=== PATIENT | female | born 1945 | race Caucasian/White ===

== ENCOUNTER 2017-09-03 09:26 | Day surgery (SDC) | payer OTHER, BC ==
[2017-08-17 17:28] VITALS: BMI 28.0
--- NOTE | 2017-09-02 20:43 | HP ---
Admitting History and Physical - Admission Chief Complaint: Left knee osteoarthritis x years History of Present Illness: 71 year old female presents in regard to her left knee. Longstanding history of left knee osteoarthritis. Patient admits to pain, limited ROM, difficulty ambulating and difficulty completing ADLs. Patient has failed conservative treatment measures including PO medications, activity modification, injections and an exercise program. At this point, patient wishes to proceed with surgical intervention - left partial knee replacement, MAKOplasty. History Source: Patient - Past Medical History Cardiovascular: Yes: CHF, HTN, Hyperlipdemia Pulmonary: Yes: Asthma ...: No ENT: Yes: Other (Seasonal allergies) - Past Surgical History Additional Past Surgical History: See written history & physical. - Smoking History Smoking history: Former smoker Have you smoked in the past 12 months: No If you are a former smoker, when did you quit?: 2012 - Alcohol/Substance Use Hx Alcohol Use: No Home Medications - Allergies Allergies/Adverse Reactions: Allergies Allergy/AdvReac Type Severity Reaction Status Date / Time amoxicillin trihydrate Allergy Severe LIVER Verified 04/27/15 09:12 [From Augmentin] FUNCTION TESTS GET VERY ELEVATED celecoxib [From Celebrex] Allergy Severe Rash Verified 04/27/15 09:12 gabapentin Allergy Severe LEG Verified 08/17/17 17:13 SWELLING potassium clavulanate Allergy Severe LIVER Verified 04/27/15 09:12 [From Augmentin] FUNCTION TESTS GET VERY ELEVATED pregabalin [From Lyrica] Allergy Severe leg Verified 08/17/17 17:13 swelling - Home Medications Home Medications: Ambulatory Orders Albuterol Sulfate Inhaler - [Ventolin HFA Inhaler -] 1 - 2 inh PO ASDIR PRN 12/29 Aspirin [ASA -] 162 mg PO DAILY 04/25/15 Atenolol [Tenormin] 50 mg PO DAILY 04/25/15 Atorvastatin Ca [Lipitor] 40 mg PO Q48H 04/25/15 Carisoprodol [Soma] 350 mg PO BID PRN 04/25/15 Furosemide [Lasix -] 40 mg PO DAILY 04/25/15 Hydrochlorothiazide [Hctz -] 12.5 mg PO DAILY 04/25/15 Montelukast Na [Singulair -] 10 mg PO DAILY 04/25/15 Potassium Chloride 20 meq PO DAILY 04/25/15 Ranitidine HCl [Zantac] 150 mg PO DAILY 04/25/15 Valsartan [Diovan] 20 mg PO HS 04/25/15 Zolpidem Tartrate [Ambien Cr] 12.5 mg PO HS PRN 04/25/15 Meloxicam [Mobic] 1 tab PO DAILY 05/15/17 Oxymorphone HCl [Opana] 10 mg PO BID 05/15/17 Pramipexole Di-HCl [Mirapex ER] 1 tab PO DAILY 05/15/17 Alendronate Na [Fosamax] 70 mg PO Q7D 08/17/17 Atorvastatin Ca [Lipitor] 20 mg PO Q48H 08/17/17 Ca/D3/Mag Ox/Zinc/Pelt Grader/Martin/Bor [Calcium 600+D3 Plus Caplet] 1 each PO DAILY 07/01 Duloxetine HCl [Cymbalta] 30 mg PO DAILY 08/17/17 Multivitamin [Multiple Vitamins] 1 each PO DAILY 08/17/17 Oxymorphone HCl [Oxymorphone HCl ER] 30 mg PO BID PRN 08/17/17 Review of Systems - Review of Systems Musculoskeletal: reports: Decreased ROM (left knee), Joint Pain (left knee) Physical Examination Constitutional: Yes: Well Nourished, No Distress Eyes: Yes: Conjunctiva Clear HENT: Yes: Atraumatic, Normocephalic Neck: Yes: Supple Cardiovascular: Yes: Regular Rate and Rhythm Respiratory: Yes: Regular Gastrointestinal: Yes: Soft ...Rectal Exam: Yes: Deferred Musculoskeletal: Yes: Joint Stiffness (left knee), Joint Swelling (left knee) Assessment/Plan 71 year old female presents in regard to her left knee. Longstanding history of left knee osteoarthritis. Patient admits to pain, limited ROM, difficulty ambulating and difficulty completing ADLs. Patient has failed conservative treatment measures including PO medications, activity modification, injections and an exercise program. At this point, patient wishes to proceed with surgical intervention. Pros, cons, risks, benefits and alternatives of a - left partial knee replacement, MAKOplasty was discussed with the patient at length. Patient confirms their understanding and consents to proceed with a left partial knee replacement, MAKOplasty.
[~2017-09-03 09:26] MED LIST: CEFAZOLIN IVPB ONE; ROPIVICAINE 0.2%/MORPH PF/KETOROLAC - 51ML DISP.SYRINGE IA ONE; TRANEXAMIC ACID 1000 MG/10 ML VIAL IVPUSH ONE; [UNRECOGNIZED DRUG - OTHER] IVPB ONE; oxyCODONE HCL 10 MG SUSTAINED ACTING TABLET PO ONE
[2017-09-03] MEDS ORDERED: oxyCODONE HCL 10 MG SUSTAINED ACTING TABLET ONE (10:51)
[2017-09-03] MEDS ORDERED: PANTOPRAZOLE 40 MG TABLET (FP) ONE (10:51)
[2017-09-03] MEDS: PANTOPRAZOLE 40 MG TABLET (FP) PO ONE (11:00)
[2017-09-03] MEDS ORDERED: PROPOFOL 20 ML ONE ×4 (11:20→14:15)
[2017-09-03] MEDS ORDERED: LIDOCAINE HCL 2% 100 MG/5 ML DISP.SYRIN ONE (11:22)
[2017-09-03] MEDS ORDERED: MIDAZOLAM HCL 2 MG/2 ML SINGLE DOSE VIAL ONE ×2 (11:51→11:55)
[2017-09-03] MEDS ORDERED: BUPIVACAINE HCL/PF (5 MG/ML) 30 ML VIAL IJ ONE (11:51)
[2017-09-03] MEDS ORDERED: DEXAMETHASONE SOD PHOSPHATE/PF 10 MG/ML SDV ONE (11:51)
[2017-09-03] MEDS ORDERED: ceFAZolin SODIUM 1 GM VIAL ONE ×2 (11:55→11:57)
[2017-09-03] MEDS ORDERED: VANCOMYCIN 1,000 MG VIAL (RESTRICTED TO ID ONLY) ONE (11:55)
[2017-09-03] MEDS ORDERED: TRANEXAMIC ACID 1000 MG/10 ML VIAL ONE ×3 (11:55→14:16)
[2017-09-03] MEDS ORDERED: ONDANSETRON 4 MG/2 ML VIAL ONE (11:57)
[2017-09-03] MEDS ORDERED: DEXAMETHASONE SOD PHOSPHATE 4 MG/1 ML VIAL ONE (11:57)
[2017-09-03] MEDS ORDERED: ROPIVICAINE 0.2%/MORPH PF/KETOROLAC - 51ML DISP.SYRINGE IA ONE (11:57)
[2017-09-03] MEDS ORDERED: ceFAZolin SODIUM 1 GM VIAL IVPB ONE (14:16)
[2017-09-03] MEDS ORDERED: KETOROLAC TROMETHAMINE 30 MG/1 ML VIAL ONE (14:38)
[2017-09-03] MEDS ORDERED: ONDANSETRON 4 MG/2 ML VIAL IVPUSH PRN ×2 (15:28→15:45)
[2017-09-03] MEDS ORDERED: MAG HYDROX/AL HYDROX/SIMETH 30 ML UNIT-DOSE CUP PO PRN (15:28)
[2017-09-03] MEDS ORDERED: LACTATED RINGERS SOLUTION 1,000 ML IV SCH (15:30)
[2017-09-03] MEDS ORDERED: oxyCODONE HCL 5 MG TABLET PO PRN (15:46)
[2017-09-03] MEDS ORDERED: traMADol HCL 50 MG TABLET ONE (16:12)
[2017-09-03] MEDS ORDERED: ACETAMINOPHEN INJECTION 100 ML IVPB ONE (16:12)
[2017-09-03] MEDS ORDERED: KETOROLAC TROMETHAMINE 30 MG/1 ML VIAL IVPUSH SCH (16:15)
[2017-09-03] MEDS ORDERED: ACETAMINOPHEN 1000 MG/100 ML VIAL (NON FORMULARY) IVPB ONE ×2 (16:15)
[2017-09-03] MEDS: traMADol HCL 50 MG TABLET PO SCH ×2 (16:58→23:00)
[2017-09-03] MEDS ORDERED: traMADol HCL 50 MG TABLET PO SCH (18:00)
[2017-09-03] MEDS ORDERED: ALBUTEROL SO4 18 GM HFA INHALER IH PRN (18:46)
[2017-09-03] MEDS ORDERED: ATORVASTATIN CA 20 MG TABLET (FP) PO SCH (19:00)
[2017-09-03] MEDS: CEFAZOLIN 1 GM/D5W 1 GM/50 ML BAG IVPB SCH (20:05)
[2017-09-03] MEDS: DULoxetine HCL 30 MG CAPSULE.DR (FP) PO SCH (22:00)
[2017-09-03] MEDS ORDERED: VALSARTAN 40 MG TABLET (FP) PO SCH (22:00)
[2017-09-03] MEDS ORDERED: ATORVASTATIN CA 40 MG TABLET (FP) PO SCH (22:00)
[2017-09-03] MEDS: oxyCODONE HCL 10 MG SUSTAINED ACTING TABLET PO SCH (22:05)
[2017-09-03] MEDS: ASCORBIC ACID 500 MG TABLET (FP) PO SCH (22:05)
[2017-09-03] MEDS: SENNOSIDES/DOCUSATE COMBO (SENNA PLUS) TABLET (UD) PO SCH (22:05)
[2017-09-03] MEDS: ACETAMINOPHEN 325 MG TABLET (FP) PO SCH (22:06)
[2017-09-03] MEDS: KETOROLAC TROMETHAMINE 30 MG/1 ML VIAL IVPUSH SCH (22:06)
[2017-09-03] MEDS ORDERED: DEXAMETHASONE SOD PHOSPHATE 10 MG/1 ML VIAL IVPB ONE (23:00)
[2017-09-04] MEDS: CEFAZOLIN 1 GM/D5W 1 GM/50 ML BAG IVPB SCH (01:59)
[2017-09-04] MEDS: traMADol HCL 50 MG TABLET PO SCH ×2 (04:21→11:51)
[2017-09-04] MEDS: ACETAMINOPHEN 325 MG TABLET (FP) PO SCH ×2 (04:21→12:39)
[2017-09-04] MEDS: KETOROLAC TROMETHAMINE 30 MG/1 ML VIAL IVPUSH SCH ×2 (04:21→09:49)
[2017-09-04] MEDS ORDERED: LACTATED RINGERS SOLUTION 1,000 ML IV SCH (06:00)
[2017-09-04] MEDS ORDERED: ASPIRIN 325 MG TABLET PO SCH (08:00)
[2017-09-04 08:16] LABS: HEMATOCRIT 38.7 % (32.4-45.2); HEMOGLOBIN 13.1 GM/dl (10.7-15.3); MCH 31.7 pg (25.7-33.7); MCHC 33.9 g/dl (32.0-36.0); MEAN CELL VOLUME 93.6 fl (80-96); MEAN PLT VOLUME 7.5 fl (7.5-11.1); PLATELET COUNT 225 K/MM3 (134-434); RBC 4.13 M/mm3 (3.60-5.2); RDW 12.4 % (11.6-15.6); WHITE BLOOD COUNT 13.4 K/mm3 (4.0-10.8)
[2017-09-04] MEDS: oxyCODONE HCL 5 MG TABLET PO PRN ×3 (08:36→14:00)
[2017-09-04 09:14] LABS: ANION GAP 9 (8-16); BLOOD UREA NITROGEN 20 mg/dl (7-18); CALCIUM 8.4 mg/dl (8.4-10.2); CHLORIDE 104 mmol/L (98-107); CO2 22 mmol/L (22-28); CREATININE 0.8 mg/dl (0.6-1.3); GLUCOSE,RANDOM 204 mg/dl (74-106); POTASSIUM 4.3 mmol/L (3.5-5.1); SODIUM 135 mmol/L (136-145)
--- NOTE | 2017-09-04 09:37 | PN ---
Progress Note (short form) - Note Progress Note: Anesthesia Post-Op Note Pt s/p left medial TKR with Dr. Wilson on 09/03/17. Pt received PNB + Spinal + MAC. Reports pain controlled. OOB to chair and ambulating with PT. Tolerating PO diet. Vital Signs Temperature 98.4 F 09/04/17 06:00 Pulse Rate 64 09/04/17 06:00 Respiratory Rate 18 09/04/17 06:00 Blood Pressure 142/59 09/04/17 06:00 O2 Sat by Pulse Oximetry (%) 100 09/04/17 06:00 Continue ISS. Encourage ambulation. Bowel regimen.
[2017-09-04] MEDS: SENNOSIDES/DOCUSATE COMBO (SENNA PLUS) TABLET (UD) PO SCH (09:42)
[2017-09-04] MEDS: DULoxetine HCL 30 MG CAPSULE.DR (FP) PO SCH (09:45)
[2017-09-04] MEDS: oxyCODONE HCL 10 MG SUSTAINED ACTING TABLET PO SCH (09:46)
[2017-09-04] MEDS: ASCORBIC ACID 500 MG TABLET (FP) PO SCH (09:46)
[2017-09-04] MEDS: PANTOPRAZOLE 40 MG TABLET (FP) PO ONE (09:46)
[2017-09-04 09:50] VITALS: PULSE 72; TEMP 98
[2017-09-04] MEDS ORDERED: PANTOPRAZOLE 40 MG TABLET (FP) PO SCH (10:00)
[2017-09-04] MEDS ORDERED: HYDROCHLOROTHIAZIDE 12.5 MG CAPSULE (FP) PO SCH (10:00)
[2017-09-04] MEDS ORDERED: PRAMIPEXOLE DI HCL PO SCH (10:00)
[2017-09-04] MEDS ORDERED: MULTIVITAMINS (DAILY MVI) TABLET (FP) PO SCH (10:00)
[2017-09-04] MEDS ORDERED: ATENOLOL 50 MG TABLET (FP) PO SCH (10:00)
[2017-09-04] MEDS ORDERED: FUROSEMIDE 40 MG TABLET (FP) PO SCH (10:00)
[2017-09-04] MEDS ORDERED: PT OWN MED DRAWER 7, Y5N ONE (11:42)
--- NOTE | 2017-09-04 13:11 | DS ---
Physical Examination Vital Signs: Vital Signs Temperature 98 F 09/04/17 09:49 Pulse Rate 72 09/04/17 09:49 Respiratory Rate 18 09/04/17 09:49 Blood Pressure 129/80 09/04/17 09:49 O2 Sat by Pulse Oximetry (%) 100 09/04/17 09:00 Labs: CBC, BMP 09/04/17 08:00 09/04/17 08:47 Discharge Summary Reason For Visit: LEFT KNEE OSTEOARTHRITIS Current Active Problems Osteoarthritis of left knee (Acute) Procedures: Principal: Left knee medial MARITZA [facility] Hospital Course: Admitted for elective surgery. Procedure performed without complications. Pt received postoperative antibiotic prophylaxis and DVT ppx. Ambulated with physical therapy. Stable for discharge home with outpatient followup. Condition: Stable - Instructions Diet, Activity, Other Instructions: Dr. Wilson - Knee Replacement Instructions Keep the Aquacel dressing on until removed by Dr. Wilson in 10-14 days - it is antibacterial and waterproof and you can shower with it on. Call the office for a follow-up appointment with Dr. Wilson on ThursdaySeptember 18. [phone] Dr. Wilson will be out of town next week but his partners, Drs. Ca and Mikal will be in the office covering if there are any issues. Take one Aspirin 325mg daily for 6 weeks to prevent blood clots in your legs. Take Cephalexin (antibiotic) 3x/day for 10 days to help prevent skin infection. Resume taking meloxicam to reduce swelling and inflammation. Take a multivitamin, stool softener, and extra Vitamin C supplement daily. For pain: *Mild pain (1-3/10): Take 1 Tramadol tablet every 4 hours as needed. Moderate pain (4-6/10): Take 1 Tramadol tablet and 1 Percocet tablet every 4 hours as needed. Severe pain (7-10/10): Take 1 Tramadol tablet and 2 Percocet tablets every 4 hours as needed. Activity: You can put as much weight on the operative leg as you want. Right after you get home, there will be a physical therapist coming to your house to help you walk around and bend/straighten your knee. After your follow-up appointment, you will be sent for more intensive outpatient physical therapy which will include machines and equipment that the home therapist cannot bring to your house. Always use a walker or cane for balance and to prevent falls. Expect to see swelling/bruising from the operative site all the way down to your toes. Wear the compression stocking on the operative side during the day to minimize how much swelling there is in your foot/ankle. Don't wear the stocking at night. You don't have to wear a stocking on the other side. Disposition: VNS/HOME HEALTH CARE - Home Medications Comprehensive Discharge Medication List: Ambulatory Orders Albuterol Sulfate Inhaler - [Ventolin HFA Inhaler -] 1 - 2 inh PO ASDIR PRN 12/29 Atenolol [Tenormin] 50 mg PO DAILY 04/25/15 Atorvastatin Ca [Lipitor] 40 mg PO Q48H 04/25/15 Carisoprodol [Soma] 350 mg PO BID PRN 04/25/15 Furosemide [Lasix -] 40 mg PO DAILY 04/25/15 Hydrochlorothiazide [Hctz -] 12.5 mg PO DAILY 04/25/15 Montelukast Na [Singulair -] 10 mg PO DAILY 04/25/15 Potassium Chloride 20 meq PO DAILY 04/25/15 Ranitidine HCl [Zantac] 150 mg PO DAILY 04/25/15 Valsartan [Diovan] 20 mg PO HS 04/25/15 Zolpidem Tartrate [Ambien Cr] 12.5 mg PO HS PRN 04/25/15 Meloxicam [Mobic] 1 tab PO DAILY 05/15/17 Oxymorphone HCl [Opana] 10 mg PO BID 05/15/17 Pramipexole Di-HCl [Mirapex ER] 1 tab PO DAILY 05/15/17 Alendronate Na [Fosamax (Weekly)] 70 mg PO Q7D 08/17/17 Atorvastatin Ca [Lipitor] 20 mg PO Q48H 08/17/17 Ca/D3/Mag Ox/Zinc/Soapstoner/Martin/Bor [Calcium 600-D3 Plus Caplet] 1 each PO DAILY 07/01 Duloxetine HCl [Cymbalta] 30 mg PO BID 08/17/17 Multivitamin [Multiple Vitamins] 1 each PO DAILY 08/17/17 Oxymorphone HCl [Oxymorphone HCl ER] 30 mg PO BID PRN 08/17/17 Ascorbic Acid [Vitamin C -] 500 mg PO BID tablet 09/04/17 Aspirin [ASA -] 325 mg PO DAILY@0800 tablet 09/04/17 Cephalexin Monohydrate [Keflex -] 500 mg PO TID #30 capsule 09/04/17 Multivitamins [Multivit ([facility])] 1 tab PO DAILY tab 09/04/17 Oxycodone HCl/Acetaminophen [Percocet 5-325 mg Tablet] 1 - 2 tab PO Q4H PRN #60 tablet MDD 10 09/04/17 Sennosides/Docusate Sodium [Pericolace -] 2 tablet PO BID tablet 09/04/17 traMADol HCL [Ultram -] 50 mg PO Q4H PRN #42 tablet MDD 6 09/04/17
[2017-09-04 13:18] VITALS: BP 110/74
--- NOTE | 2017-09-04 14:30 | SPEC ---
DATE OF OPERATION: 09/03/2017 PREOPERATIVE DIAGNOSIS: Left knee osteoarthritis. POSTOPERATIVE DIAGNOSIS: Left knee osteoarthritis. PROCEDURE: Left knee medial MAKOplasty partial knee replacement. ATTENDING: Aureliano Cleaning MD BUILDING CODE INSPECTOR: CLARITA Manning ANESTHESIA: Spinal plus sedation. ESTIMATED BLOOD LOSS: 100 mL. COMPLICATIONS: None. DISPOSITION: The patient was transferred to the PACU in stable condition. IMPLANTS USED: Rodri size 4 femoral and tibial components, 10-mm polyethylene component. INDICATIONS: This is a 71-year-old female who presented to the office complaining of severe left knee pain. She was seen and examined by Dr. Cleaning and diagnosed with severe left knee osteoarthritis. The degeneration and pain was localized exclusively to the medial compartment. She denied having any lateral or patellofemoral pain. The patient was initially treated nonoperatively with injections, medications, and physical therapy but continued to have severe pain and ambulatory dysfunction. She was, therefore, indicated for a left knee medial MAKOplasty partial knee replacement. Again, all of her symptoms were located in the medial compartment, and therefore, we elected to proceed with a medial unicompartmental arthropathy. The risks, benefits, and alternatives to the surgery were explained to the patient in great detail, and she elected to proceed with the procedure. DESCRIPTION OF PROCEDURE: On the day of surgery, the patient was taken to the operating room and placed on the OR table. Spinal anesthesia was administered by the anesthesiologist. The patient was then positioned supine on the table and all bony prominences were padded. A nonsterile tourniquet was placed on the proximal thigh of the operative leg. The knee was then prepped and draped in the usual sterile fashion and intravenous antibiotics were given for infection prophylaxis. A surgical time out was then performed with the team and the patient's identify, procedure, side, availability of implants and the administration of antibiotics was confirmed. With the knee flexed, an 8 cm incision was made just slightly medial to the midline and carried down through the subcutaneous fat to the underlying retinaculum. Electrocautery was used to achieve hemostasis. A limited medial parapatellar arthrotomy was performed. This was followed by a subperiosteal dissection of the tissue off the proximal medial tibia. A portion of fat pad was removed from under the patellar tendon to improve visualization and a small portion of fat was excised off the distal supracondylar femur. The knee was then flexed further and the anterior horn of the medial meniscus was released. Grade 4 changes were noted diffusely throughout the medial compartment. The lateral compartment appeared to be in good condition. Femoral and tibial checkpoints were then placed in the appropriate location using a mallet. Two parallel bicortical self-drilling pins were placed in the proximal tibia after making stab incisions and bluntly dissecting down to bone. These were positioned approximately 10 cm distal to the tibial tubercle. Two pins were then placed in the proximal femur using the same technique. These were located approximately 10 cm proximal to the superior pole of the patella. The PROFICIO navigation arrays were then attached to both the femoral and tibial pins and the lower extremity was then registered to the robotic navigation device using various joint movements, as well as inputting approximately 50 checkpoints. The knee was then taken through a full range of motion with a corrective valgus force applied. Alignment in varus/valgus was measured at 0, 30, 60, 90 and 120 degrees of flexion to determine soft tissue balance in all of these positions. The navigation device showed appropriate tracking of the virtual components on the screen, as well as a graphic representation of the soft tissue balance. The components were repositioned virtually using the software until optimal soft tissue balance was achieved. Once this was accomplished, the final plan was saved and sent to the robot. Retractors were then placed around the distal femur. The robot was brought into the sterile field and registered with the navigation device. The robotic arm with a damaris was then used to remove the appropriate amount of bone from the femur and tibia as per the saved software plan. The knee was then irrigated. Trial components were placed and the knee was taken through a full range of motion to assess soft tissue balance and alignment. The tracking and range of motion were found to be excellent and the soft tissue balance was optimal and according to plan. All trial components were then removed and an Esmarch bandage was used to exsanguinate the leg. The tourniquet was inflated in preparation for cementing. All bony surfaces were cleaned with pulsatile lavage and dried. Bone cement was then prepared on the back table and final components were cemented in place in the usual fashion. After final implants were placed, a 3-minute dilute Betadine lavage was performed. Following this, the wound was irrigated with normal saline, and wound closure was begun. Extruded cement was removed. Once the cement had hardened, the knee was taken through a full range of motion to assess stability, balance and patellar tracking. These were found to be optimal. The trial polyethylene was exchanged for a final implant. Medial and inferior osteophytes were debrided off the patella (patelloplasty). The navigation arrays and Kimani pins were removed from the femur and tibia. All wounds were then thoroughly irrigated with normal saline. A periarticular injection was used to locally infiltrate the capsular tissues surrounding the implant and prosthesis. A 1 Vicryl and 0 V-Francy 180 barbed sutures were used to close the arthrotomy. 2-0 Vicryl sutures were used in the subcutaneous tissues. The skin was closed using both 3-0 V-Francy 90 suture in a running subcuticular fashion and Dermabond skin adhesive. 4-0 undyed Vicryl and Dermabond skin adhesive was used to close the stab incisions made for the navigation pins. Once this was completed, sterile Aquacel dressings were applied to each incision site. A compressive dressing was applied. The tourniquet was then deflated and the patient was awakened and went to the PACU in stable condition. AURELIANO CLEANING M.D. [id number]
[2017-09-04] MEDS ORDERED: MONTELUKAST NA 10 MG TABLET PO SCH (22:00)
== END 2017-09-04 14:15 | disposition home health service (06) ==
LOC: FASU 09:26 → FM/S 17:36 → FASU 09-04 14:15
PROVIDERS: ATTEND Student in an Organized Health Care Education/Training Program
PROC: 8E0YXBZ Computer Assisted Procedure of Lower Extremity (ICD-10-PCS; 2017-09-03)
PROC: 8E0Y0CZ Robotic Assisted Procedure of Lower Extremity, Open Approach (ICD-10-PCS; 2017-09-03)
PROC: 0SRD0L9 Replacement of Left Knee Joint with Medial Unicondylar Synthetic Substitute, Cemented, Open Approach (ICD-10-PCS; principal; 2017-09-03 11:30)
DX: M17.12 Unilateral primary osteoarthritis, left knee (principal)
CPT/HCPCS: 20985; 27446; C1776; S2900; 36415; 73560-TC-LT-FY; 80048; 85027; 94760; 97116-GP; 97162-GP; J0131; J1100

== ENCOUNTER 2018-05-14 06:09 | Day surgery (SDC) | payer OTHER, BC ==
[2018-05-10 14:54] VITALS: BMI 29.2
[2018-05-14] MEDS ORDERED: PROPOFOL 20 ML ONE (07:27)
[2018-05-14] MEDS ORDERED: MIDAZOLAM HCL 2 MG/2 ML SINGLE DOSE VIAL ONE (07:27)
[2018-05-14] MEDS ORDERED: BUPIVACAINE HCL/PF 0.5% (5MG/ML) 10 ML VIAL ONE (07:37)
[2018-05-14] MEDS ORDERED: LIDOCAINE HCL 1% PRESERVATIVE FREE - 30ML VIAL ONE (07:37)
[2018-05-14] MEDS ORDERED: DEXAMETHASONE SOD PHOSPHATE 4 MG/1 ML VIAL ONE (07:52)
[2018-05-14] MEDS ORDERED: ONDANSETRON 4 MG/2 ML VIAL ONE (07:52)
[2018-05-14] MEDS ORDERED: KETOROLAC TROMETHAMINE 30 MG/1 ML VIAL ONE (07:52)
[2018-05-14] MEDS ORDERED: ceFAZolin SODIUM 1 GM VIAL ONE (07:56)
[2018-05-14] MEDS ORDERED: SUCCINYLCHOLINE CHLORIDE 200 MG/10 ML VIAL ONE (07:59)
[2018-05-14] MEDS ORDERED: BUPIVACAINE HCL/PF 0.5% (5MG/ML) 10 ML VIAL IJ ONE (08:06)
[2018-05-14] MEDS ORDERED: LIDOCAINE 1% P/F 10 MG/ML VIAL INF ONE (08:06)
[2018-05-14 09:51] VITALS: BP 118/61; PULSE 65; TEMP 98
--- NOTE | 2018-05-14 13:33 | OP ---
DATE OF OPERATION: 05/14/2018 LOCATION: [facility]. SURGEON: Zoraida Gibbons MD BOTTLE FEEDER: CLARITA Headley PREOPERATIVE DIAGNOSIS: Left foot plantar fasciitis. POSTOPERATIVE DIAGNOSIS: Left foot plantar fasciitis. PROCEDURE: Release of plantar fascia using percutaneous dissection Tenex procedure. DESCRIPTION OF PROCEDURE: The anatomy was identified and the diseased tissue was visualized and confirmed at the plantar fascia insertion. The area was prepped and draped with an antimicrobial solution, anesthetized using a 20-gauge needle, injection of 8 mL of 1% lidocaine. An 11-blade was used to puncture the skin 3 cm along the distal medial portion near the site of the pathologic tissue. Sterile sleeve was placed over the ultrasound transducer. Dissection of the plantar fascia: The surgical instrument was introduced into the puncture site, advanced to the diseased fascia. Once the tip of the instrument was confirmed to be in the pathologic tissue, the foot pedal was depressed and the fascia was incised along its length, cutting and removing the diseased fascial tissue. Following this procedure, a single suture was placed. Sterile dressing was placed. She was transferred to recovery without complication. FINDINGS: Thickened plantar fascia scar tissue. ZORAIDA GIBBONS M.D. [id number]
== END 2018-05-14 10:00 | disposition home or self-care (01) ==
LOC: FASU 06:09
PROVIDERS: ATTEND Orthopaedic Surgery
PROC: 0KNW0ZZ Release Left Foot Muscle, Open Approach (ICD-10-PCS; principal; 2018-05-14 08:07)
DX: M72.2 Plantar fascial fibromatosis (principal)

== ENCOUNTER 2018-09-03 07:14 | Day surgery (SDC) | payer OTHER, BC ==
[2018-09-03 07:57] VITALS: BMI 30.9
[2018-09-03] MEDS ORDERED: EPINEPHrine 1:1,000 1 MG/1 ML - 30ML VIAL (INJECTION) ONE (08:26)
[2018-09-03] MEDS ORDERED: ROPIVACAINE HCL 0.5% 30ML VIAL ONE (08:48)
[2018-09-03] MEDS ORDERED: MIDAZOLAM HCL 2 MG/2 ML SINGLE DOSE VIAL ONE (08:48)
[2018-09-03] MEDS ORDERED: LIDOCAINE HCL 1% PRESERVATIVE FREE - 30ML VIAL ONE (09:53)
[2018-09-03] MEDS ORDERED: methylPREDNISolone ACET (DEPO) 40 MG/1 ML VIAL ONE (09:53)
[2018-09-03] MEDS ORDERED: ePHEDrine SULFATE 50 MG/1 ML AMPULE ONE (10:08)
[2018-09-03] MEDS ORDERED: PROPOFOL 20 ML ONE ×2 (10:35→10:56)
[2018-09-03] MEDS ORDERED: LACTATED RINGERS SOLUTION 1,000 ML IV SCH (14:15)
[2018-09-03] MEDS ORDERED: oxyCODONE HCL 5 MG TABLET PO PRN ×2 (14:15)
[2018-09-03] MEDS ORDERED: ONDANSETRON 4 MG/2 ML VIAL IVPUSH PRN (14:15)
[2018-09-03 14:43] VITALS: BP 112/55; PULSE 66; TEMP 98.4
--- NOTE | 2018-09-04 11:49 | OP ---
DATE OF OPERATION: 09/03/2018 LOCATION: [facility]. SURGEON: Zoraida Gibbons MD PRESS SET UP: CLARITA Headley PREOPERATIVE DIAGNOSES: 1. Right shoulder rotator cuff tear. 2. Right shoulder adhesive capsulitis. 3. Right shoulder impingement syndrome. 4. Right shoulder acromioclavicular degenerative joint disease. 5. Right shoulder superior labral tear, anterior-posterior synovitis. 6. Right shoulder biceps tendon long head tear. POSTOPERATIVE DIAGNOSES: 1. Right shoulder rotator cuff tear. 2. Right shoulder adhesive capsulitis. 3. Right shoulder impingement syndrome. 4. Right shoulder acromioclavicular degenerative joint disease. 5. Right shoulder superior labral tear, anterior-posterior synovitis. 6. Right shoulder biceps tendon long head tear. PROCEDURE: 1. Right shoulder arthroscopy with arthroscopic rotator cuff repair (CPT code 14337). 2. Right shoulder arthroscopy with lysis and resection of adhesions (CPT code 09210). 3. Right shoulder arthroscopy with subacromial decompression (CPT code 36709). 4. Right shoulder arthroscopy with resection of the clavicle acromioclavicular joint (CPT code 10418) 5. Right shoulder arthroscopy with debridement (CPT code 08152). 6. Right shoulder arthroscopy with resection of biceps tendon (CPT code 91053). FINDINGS: 1. A 90% tearing with fraying of the long head biceps tendon. 2. Type 4 superior labral tear, anterior and posterior. 3. Posterior anterior labral fraying. 4. Central grade 2 cartilage injury, glenoid, humerus. 5. Full-thickness supraspinatus and infraspinatus rotator cuff tear with a V-shaped separation. 6. Inferior spurs, distal clavicle, with acromioclavicular joint disease. 7. Type 2 to 3 acromion with anterior spurring. 8. Thickened scar tissue and adhesions, subacromial space, most pronounced anterior and laterally. REPAIR TYPE: [id number] closure starting posteriorly inferiorly was performed with the supraspinatus, infraspinatus, anterior border secured to bleeding bone bed using 2 separate anchors and mattress sutures. Three [id number] anchors were placed and mattress sutures were placed into the anterior portion and posterior portion and secured to bleeding bone bed. Biceps tendon was completely released and debrided down to the superior labrum removing the torn portion of the biceps as well as the SLAP tear. PROCEDURE: Informed consent was obtained. The patient was taken to the operating room, where the upper extremity was prepped and draped in a sterile fashion. The shoulder was manipulated for a full range of motion. A posterior incision portal was made and directed to the glenohumeral joint. Under direct visualization, an anterior incision and portal was made. Extensive synovitis as well as chondral injuries throughout the glenohumeral joint were debrided and removed. Any identified labral injuries, including the superior labral tear, anterior and posterior, and anterior labrum torn portions, were removed as well. The rotator cuff was visualized and noted to have a full-thickness tear. The edges were debrided. The posterior incision portal was redirected to the subacromial space where a lateral incision portal was made. Excessive and thickened scar tissue noted throughout the subacromial space, including bursal and scar tissue, were removed. The type 2 acromion was converted into a flattened type 1 using a bur for subacromial decompression. The distal inferior spur at the distal clavicle was also debrided with the use of an accessory portal in the acromioclavicular joint. The edges of the rotator cuff were identified. Sutures were placed into the rotator cuff and secured using anchors through the greater tuberosity. Prior to securing, a bleeding bed was made using a small bur, creating a bleeding surface of the rotator cuff insertion. The shoulder was then drained, a single suture was placed in all portals, a sterile dressing was placed and the patient was transferred to the recovery room without complication. The PA listed above was present and assisted at surgery. Their presence was absolutely medically necessary for the completion of the procedure. They helped hold the arthroscope, pass instruments (and implants when indicated) and the procedure could not have been completed without their assistance. ZORAIDA GIBBONS M.D. [id number]
--- NOTE | 2018-09-08 13:02 | PATH ---
Surgical Pathology Report Patient Name: BOYD RODRIGUEZ [facility] [place]. Rec. #: [id number] /Age/Gender: 1945 (Age: 72) / F Account: [id number] Location: [facility] Taken: 09/03/2018 Received: 09/03/2018 Reported: 09/08/2018 Physicians: Ruben Ca M.D. Specimen(s) Received SHAVINGS RIGHT SHOULDER Clinical History Right rotator cuff tear Final Diagnosis SHOULDER, RIGHT, ARTHROSCOPIC SHAVINGS: FIBROSYNOVIAL TISSUE, CARTILAGE, BONE AND SKELETAL MUSCLE. Electronically Signed Mary Kay Love M.D. Gross Description Received in formalin, labeled "shavings right shoulder," is a 4.5 x 3.0 x 0.3 cm. aggregate of wellington-yellow soft tissue fragments. A wine sales representative portion is submitted in one cassette. /09/06/2018 saudi09/06/2018
== END 2018-09-03 14:05 | disposition home or self-care (01) ==
LOC: FASU 07:14
PROVIDERS: ATTEND Orthopaedic Surgery
PROC: 0RNJ4ZZ Release Right Shoulder Joint, Percutaneous Endoscopic Approach (ICD-10-PCS; 2018-09-03)
PROC: 0MM14ZZ Reattachment of Right Shoulder Bursa and Ligament, Percutaneous Endoscopic Approach (ICD-10-PCS; 2018-09-03)
PROC: 0PB94ZZ Excision of Right Clavicle, Percutaneous Endoscopic Approach (ICD-10-PCS; 2018-09-03)
PROC: 0RBJ4ZZ Excision of Right Shoulder Joint, Percutaneous Endoscopic Approach (ICD-10-PCS; 2018-09-03)
PROC: 0LQ14ZZ Repair Right Shoulder Tendon, Percutaneous Endoscopic Approach (ICD-10-PCS; 2018-09-03)
PROC: 0LS14ZZ Reposition Right Shoulder Tendon, Percutaneous Endoscopic Approach (ICD-10-PCS; 2018-09-03)
PROC: 0LQ14ZZ Repair Right Shoulder Tendon, Percutaneous Endoscopic Approach (ICD-10-PCS; principal; 2018-09-03 10:17)
DX: M75.121 Complete rotator cuff tear or rupture of right shoulder, not specified as traumatic (principal); M75.41 Impingement syndrome of right shoulder; M19.011 Primary osteoarthritis, right shoulder; S46.119A Strain of muscle, fascia and tendon of long head of biceps, unspecified arm, initial encounter; S43.431A Superior glenoid labrum lesion of right shoulder, initial encounter; X58.XXXA Exposure to other specified factors, initial encounter; Y93.9 Activity, unspecified; Y92.9 Unspecified place or not applicable
CPT/HCPCS: 82962; 88304-TC; 94760

== ENCOUNTER 2020-07-25 19:47 | Inpatient (IN) | payer OTHER, BC ==
[2020-07-25] MEDS ORDERED: SODIUM CHLORIDE 1,000 ML IV STA ×2 (21:12→21:43)
[2020-07-25] MEDS ORDERED: ACETAMINOPHEN 1000 MG/100 ML BAG IVPB ONE (21:12)
[2020-07-25 21:15] LABS: BASO % 0.5 % (0-2.0); HEMATOCRIT 32.7 % (32.4-45.2); HEMOGLOBIN 11.1 GM/dL (10.7-15.3); MCHC 33.9 g/dl (32.0-36.0); MEAN CELL VOLUME 91.3 fl (80-96); MEAN PLT VOLUME 7.5 fl (7.5-11.1); MONO % 3.1 % (3.8-10.2); NEUT % 93.4 % (42.8-82.8); PLATELET COUNT 156 K/MM3 (134-434); RBC 3.58 M/mm3 (3.60-5.2); RDW 15.4 % (11.6-15.6); WHITE BLOOD COUNT 18.2 K/mm3 (4.0-10.0)
[2020-07-25] MEDS ORDERED: ACETAMINOPHEN INJECTION 100 ML IVPB ONE (21:17)
[2020-07-25 21:28] LABS: EPI CELLS 15 /uL (0-25.1); HYALINE CASTS 2 /uL (0-3.1); URINE APPEARANCE TURBID; URINE BACTERIA >9,000 /uL (0-1359); URINE BILIRUBIN NEGATIVE (NEGATIVE); URINE COLOR YELLOW; URINE GLUCOSE (UA) NEGATIVE (NEGATIVE); URINE KETONE NEGATIVE (NEGATIVE); URINE LEUK ESTERASE 3+ (NEGATIVE); URINE NITRITE NEGATIVE (NEGATIVE); URINE PROTEIN 2+ (NEGATIVE); URINE RBC 71 /uL (0-23.9); URINE WBC 1575 /uL (0-25.8)
[2020-07-25 21:38] LABS: CALCIUM 7.5 mg/dL (8.5-10.1)
[2020-07-25 21:39] LABS: ALBUMIN 2.2 g/dl (3.4-5.0)
[2020-07-25 21:42] LABS: CREATININE 2.2 mg/dL (0.55-1.3)
[2020-07-25 21:44] LABS: BILIRUBIN,TOTAL 0.6 mg/dL (0.2-1); TOT PROT 5.6 g/dl (6.4-8.2)
[2020-07-25 22:12] LABS: ANISOCYTOSIS 1+; MACROCYTOSIS 0; PLATELET ESTIMATE NORMAL
[2020-07-26] MEDS ORDERED: ALBUTEROL SO4 HFA INHALER IH PRN ×2 (01:25→12:00)
[2020-07-26] MEDS ORDERED: SODIUM CHLORIDE 1,000 ML IV SCH (01:30)
[2020-07-26] MEDS ORDERED: ACETAMINOPHEN 325 MG TABLET (FP) PO PRN (01:33)
[2020-07-26] MEDS ORDERED: ALBUTEROL SO4 HFA INHALER IH ONE (03:43)
[2020-07-26] MEDS ORDERED: SODIUM CHLORIDE 1,000 ML IV STA (04:00)
[2020-07-26] MEDS ORDERED: MEROPENEM 1 GM in DEXTROSE 5%-WATER 100 ML IVPB SCH (05:15)
[2020-07-26] MEDS ORDERED: VANCOMYCIN 1 GM in D5W (PRE-DOCKED) 1,000 MG/250 ML IVPB ONE (05:25)
[2020-07-26] MEDS ORDERED: MEROPENEM 1 GM VIAL (RESTRICTED TO ID) IVPB ONE (05:34)
[2020-07-26 05:52] LABS: HEMATOCRIT 28.7 % (32.4-45.2); HEMOGLOBIN 9.8 GM/dL (10.7-15.3); MCH 31.2 pg (25.7-33.7); MCHC 34.1 g/dl (32.0-36.0); MEAN CELL VOLUME 91.5 fl (80-96); MEAN PLT VOLUME 7.7 fl (7.5-11.1); PLATELET COUNT 109 K/MM3 (134-434); RBC 3.13 M/mm3 (3.60-5.2); RDW 15.4 % (11.6-15.6); WHITE BLOOD COUNT 19.4 K/mm3 (4.0-10.0)
[2020-07-26] MEDS ORDERED: HEPARIN NA (PORCINE) 5,000 UNITS/ML 1ML VIAL ONE (06:18)
[2020-07-26] MEDS ORDERED: VANCOMYCIN 1 GRAM (PRE-DOCKED) 1,000 MG/250 ML BAG IVPB ONE (06:19)
[2020-07-26] MEDS: HEPARIN NA (PORCINE) 5,000 UNITS/ML 1ML VIAL SQ SCH ×3 (06:26→23:08)
[2020-07-26 06:34] LABS: LACTIC ACID 2.6 mmol/L (0.4-2.0)
[2020-07-26] MEDS: VASOPRESSIN 40 UNITS in SODIUM CHLORIDE 98 ML IVPB SCH ×2 (06:48→13:40)
[2020-07-26 08:10] LABS: CHLORIDE 107 mmol/L (98-107); SODIUM 136 mmol/L (136-145)
[2020-07-26 08:14] LABS: ALBUMIN 1.8 g/dl (3.4-5.0); ANION GAP 11 MMOL/L (8-16); BLOOD UREA NITROGEN 44.1 mg/dL (7-18); CO2 18 mmol/L (21-32); GLUCOSE,RANDOM 175 mg/dL (74-106); MAGNESIUM 1.5 mg/dL (1.8-2.4)
[2020-07-26 08:16] LABS: CHOLESTEROL 92 mg/dL (50-200); SGOT/AST 23 U/L (15-37); SGPT/ALT 23 U/L (13-61)
[2020-07-26 08:17] LABS: PHOSPHOROUS 1.8 mg/dL (2.5-4.9); TRIGLYCERIDES 155 mg/dL (0-150)
[2020-07-26 08:18] LABS: BILIRUBIN,TOTAL 0.6 mg/dL (0.2-1); HDL CHOLESTEROL 15 mg/dL (40-60); LDL CHOLESTEROL (ONLY SJRH) 46 mg/dL (5-100); TOT PROT 4.6 g/dl (6.4-8.2)
[2020-07-26 08:19] LABS: N-TERMINAL BNP 2141.1 pg/ml (5-125)
[2020-07-26] MEDS: INSULIN SLIDING SCALE (NOVOLOG) 1 VIAL SQ SCH ×4 (08:20→22:53)
[2020-07-26 08:50] LABS: ALK PHOS 131 U/L (45-117); CALCIUM 6.8 mg/dL (8.5-10.1)
[2020-07-26] MEDS ORDERED: MAGNESIUM SULF 50% (8.12 MEQ/2 ML-1 GM VIAL) IVPB ONE (08:56)
[2020-07-26 10:29] LABS: ANISOCYTOSIS 0; MACROCYTOSIS 0; PLATELET ESTIMATE DECREASED
[2020-07-26 10:47] LABS: INR 1.2 (0.83-1.09); PROTHROMBIN TIME (PATIENT) 14.4 SEC (9.7-13.0)
[2020-07-26 10:49] LABS: ACTIVATED PTT 26.3 SECONDS (25.2-36.5)
[2020-07-26 12:03] VITALS: BMI 31.8
[2020-07-26] MEDS: MUPIROCIN 2% TOPICAL OINTMENT FOR DECOLONIZATION NS SCH ×2 (12:46→22:33)
[2020-07-26] MEDS ORDERED: POTASSIUM PHOSPHATE 20 MM in SODIUM CHLORIDE 250 ML IVPB ONE (13:00)
[2020-07-26] MEDS: PANTOPRAZOLE 40 MG TABLET PO SCH (13:42)
[2020-07-26] MEDS ORDERED: MEROPENEM 500 MG VIAL (RESTRICTED TO ID) IVPB ONE (17:19)
[2020-07-26] MEDS ORDERED: DEXTROSE 5%-WATER 100 ML IVPB ONE (17:20)
[2020-07-26] MEDS: MEROPENEM 500 MG in DEXTROSE 5%-WATER 100 ML IVPB SCH (17:40)
[2020-07-26] MEDS: CHLORHEXIDINE GLUCONATE 4% CLEANSER FOR DECOLONIZATION TP SCH (22:33)
[2020-07-26] MEDS: INSULIN (LEVEMIR) 100 UNITS/ML UNITS SQ SCH (22:53)
[2020-07-27] MEDS: MEROPENEM 500 MG in DEXTROSE 5%-WATER 100 ML IVPB SCH ×3 (02:35→17:14)
[2020-07-27] MEDS ORDERED: DEXTROSE 5%-WATER 100 ML IVPB ONE ×3 (04:47→17:12)
[2020-07-27] MEDS ORDERED: MEROPENEM 500 MG VIAL (RESTRICTED TO ID) IVPB ONE ×3 (04:47→17:12)
[2020-07-27] MEDS: HEPARIN NA (PORCINE) 5,000 UNITS/ML 1ML VIAL SQ SCH ×3 (06:00→23:05)
[2020-07-27] MEDS: INSULIN SLIDING SCALE (NOVOLOG) 1 VIAL SQ SCH ×4 (06:00→23:05)
[2020-07-27] MEDS ORDERED: MEROPENEM 1 GM in DEXTROSE 5%-WATER 100 ML IVPB SCH (06:15)
[2020-07-27] MEDS: VASOPRESSIN 40 UNITS in SODIUM CHLORIDE 98 ML IVPB SCH (06:47)
[2020-07-27] MEDS: MUPIROCIN 2% TOPICAL OINTMENT FOR DECOLONIZATION NS SCH ×2 (09:26→23:04)
[2020-07-27] MEDS: PANTOPRAZOLE 40 MG TABLET PO SCH (09:27)
[2020-07-27] MEDS ORDERED: VANCOMYCIN 1,000 MG in DEXTROSE 5%-WATER - 250 ML IVPB SCH (10:00)
[2020-07-27] MEDS: INSULIN (LEVEMIR) 100 UNITS/ML UNITS SQ SCH ×2 (10:59→23:05)
[2020-07-27] MEDS ORDERED: ACETAMINOPHEN 1000 MG/100 ML BAG IVPB ONE (12:05)
[2020-07-27 17:40] LABS: BASO % 0.1 % (0-2.0); HEMATOCRIT 30.1 % (32.4-45.2); HEMOGLOBIN 10.1 GM/dL (10.7-15.3); LYMPH % 2.7 % (8-40); MCH 30.6 pg (25.7-33.7); MCHC 33.6 g/dl (32.0-36.0); MEAN CELL VOLUME 91.3 fl (80-96); MEAN PLT VOLUME 8.7 fl (7.5-11.1); MONO % 3.8 % (3.8-10.2); NEUT % 93.4 % (42.8-82.8); PLATELET COUNT 118 K/MM3 (134-434); RDW 15.5 % (11.6-15.6); WHITE BLOOD COUNT 16.8 K/mm3 (4.0-10.0)
[2020-07-27 17:58] LABS: ALBUMIN 1.9 g/dl (3.4-5.0); BLOOD UREA NITROGEN 38.7 mg/dL (7-18); CALCIUM 7.7 mg/dL (8.5-10.1); MAGNESIUM 2.4 mg/dL (1.8-2.4)
[2020-07-27 18:02] LABS: CREATININE 1.1 mg/dL (0.55-1.3); PHOSPHOROUS 2.4 mg/dL (2.5-4.9)
[2020-07-27 18:03] LABS: BILIRUBIN,TOTAL 0.3 mg/dL (0.2-1); TOT PROT 5.1 g/dl (6.4-8.2)
[2020-07-27 19:28] LABS: ANISOCYTOSIS 0; MACROCYTOSIS 0; PLATELET ESTIMATE DECREASED
[2020-07-27] MEDS: CHLORHEXIDINE GLUCONATE 4% CLEANSER FOR DECOLONIZATION TP SCH (23:05)
[2020-07-27] MEDS ORDERED: ALBUTEROL SO4 HFA INHALER IH PRN ×2 (23:11)
[2020-07-28] MEDS ORDERED: DEXTROSE 5%-WATER 100 ML IVPB ONE ×2 (01:23→08:47)
[2020-07-28] MEDS ORDERED: MEROPENEM 500 MG VIAL (RESTRICTED TO ID) IVPB ONE ×2 (01:23→08:46)
[2020-07-28] MEDS: MEROPENEM 500 MG in DEXTROSE 5%-WATER 100 ML IVPB SCH ×2 (01:29→09:01)
[2020-07-28] MEDS: HEPARIN NA (PORCINE) 5,000 UNITS/ML 1ML VIAL SQ SCH ×3 (05:56→21:00)
[2020-07-28] MEDS: INSULIN SLIDING SCALE (NOVOLOG) 1 VIAL SQ SCH ×4 (06:44→21:01)
[2020-07-28] MEDS: PANTOPRAZOLE 40 MG TABLET PO SCH (08:59)
[2020-07-28] MEDS: INSULIN (LEVEMIR) 100 UNITS/ML UNITS SQ SCH ×2 (09:02→21:00)
[2020-07-28 09:10] LABS: BASO % 0.2 % (0-2.0); HEMATOCRIT 30.5 % (32.4-45.2); HEMOGLOBIN 10.3 GM/dL (10.7-15.3); LYMPH % 4.2 % (8-40); MCH 30.8 pg (25.7-33.7); MCHC 33.6 g/dl (32.0-36.0); MEAN CELL VOLUME 91.8 fl (80-96); MEAN PLT VOLUME 8.4 fl (7.5-11.1); MONO % 5.2 % (3.8-10.2); NEUT % 90.4 % (42.8-82.8); PLATELET COUNT 130 K/MM3 (134-434); RBC 3.33 M/mm3 (3.60-5.2); RDW 15.9 % (11.6-15.6); WHITE BLOOD COUNT 11.9 K/mm3 (4.0-10.0)
[2020-07-28 09:46] LABS: ALBUMIN 1.8 g/dl (3.4-5.0); BLOOD UREA NITROGEN 32.3 mg/dL (7-18); CALCIUM 8.1 mg/dL (8.5-10.1); MAGNESIUM 2.3 mg/dL (1.8-2.4)
[2020-07-28 09:50] LABS: CREATININE 1.1 mg/dL (0.55-1.3); PHOSPHOROUS 2.5 mg/dL (2.5-4.9)
[2020-07-28 09:51] LABS: BILIRUBIN,TOTAL 0.3 mg/dL (0.2-1); TOT PROT 5.2 g/dl (6.4-8.2)
[2020-07-28] MEDS ORDERED: MUPIROCIN 2% TOPICAL OINTMENT FOR DECOLONIZATION NS SCH (10:00)
[2020-07-28 13:44] LABS: EPI CELLS 15 /uL (0-25.1); HYALINE CASTS 1 /uL (0-3.1); URINE APPEARANCE CLEAR; URINE BACTERIA 6 /uL (0-1359); URINE BILIRUBIN NEGATIVE (NEGATIVE); URINE COLOR YELLOW; URINE GLUCOSE (UA) NEGATIVE (NEGATIVE); URINE KETONE NEGATIVE (NEGATIVE); URINE LEUK ESTERASE TRACE (NEGATIVE); URINE NITRITE NEGATIVE (NEGATIVE); URINE PROTEIN NEGATIVE (NEGATIVE); URINE RBC 10 /uL (0-23.9); URINE UROBILINOGEN 0.2 mg/dL (0.2-1.0); URINE WBC 25 /uL (0-25.8)
[2020-07-28] MEDS: SODIUM BICARBONATE 650 MG TABLET PO SCH ×2 (13:59→21:01)
[2020-07-28] MEDS: ACETAMINOPHEN 325 MG TABLET (FP) PO PRN (14:13)
[2020-07-28] MEDS: CEFAZOLIN 2 GM/D5W 2 GM/50 ML ML IVPB SCH (17:35)
[2020-07-28] MEDS ORDERED: INSULIN (NOVOLOG) ASPART 100 UNITS/ML 10ML VIAL ONE (20:38)
[2020-07-28] MEDS: FUROSEMIDE 20 MG TABLET (FP) PO SCH (21:00)
[2020-07-28] MEDS ORDERED: CHLORHEXIDINE GLUCONATE 4% CLEANSER FOR DECOLONIZATION TP SCH (22:00)
[2020-07-29] MEDS: CEFAZOLIN 2 GM/D5W 2 GM/50 ML ML IVPB SCH ×3 (02:52→17:33)
[2020-07-29] MEDS: HEPARIN NA (PORCINE) 5,000 UNITS/ML 1ML VIAL SQ SCH ×3 (05:42→22:37)
[2020-07-29] MEDS: ACETAMINOPHEN 325 MG TABLET (FP) PO PRN ×2 (05:42→15:28)
[2020-07-29] MEDS: INSULIN SLIDING SCALE (NOVOLOG) 1 VIAL SQ SCH ×4 (06:00→22:38)
[2020-07-29 09:14] LABS: BASO % 0.3 % (0-2.0); EOS % 0.3 % (0-4.5); HEMOGLOBIN 10.4 GM/dL (10.7-15.3); LYMPH % 9.2 % (8-40); MCH 31.4 pg (25.7-33.7); MCHC 34.6 g/dl (32.0-36.0); MEAN CELL VOLUME 90.7 fl (80-96); MEAN PLT VOLUME 8.4 fl (7.5-11.1); NEUT % 83.2 % (42.8-82.8); PLATELET COUNT 154 K/MM3 (134-434); RBC 3.31 M/mm3 (3.60-5.2); RDW 15.8 % (11.6-15.6); WHITE BLOOD COUNT 8.4 K/mm3 (4.0-10.0)
[2020-07-29 10:12] LABS: CALCIUM 8.2 mg/dL (8.5-10.1)
[2020-07-29 10:15] LABS: ALBUMIN 1.9 g/dl (3.4-5.0); BLOOD UREA NITROGEN 36.9 mg/dL (7-18)
[2020-07-29 10:18] LABS: CREATININE 1.3 mg/dL (0.55-1.3)
[2020-07-29 10:19] LABS: BILIRUBIN,TOTAL 0.4 mg/dL (0.2-1)
[2020-07-29] MEDS: SODIUM BICARBONATE 650 MG TABLET PO SCH ×2 (10:21→22:38)
[2020-07-29] MEDS: FUROSEMIDE 20 MG TABLET (FP) PO SCH (10:22)
[2020-07-29] MEDS: PANTOPRAZOLE 40 MG TABLET PO SCH (10:22)
[2020-07-29] MEDS: INSULIN (LEVEMIR) 100 UNITS/ML UNITS SQ SCH ×2 (10:23→22:37)
[2020-07-29 11:32] LABS: ANISOCYTOSIS 0; HELMET CELLS 0; HOWELL-JOLLY BODIES 0; MACROCYTOSIS 0; OVALOCYTE 0; PLATELET ESTIMATE NORMAL; ROULEAU 0; SICKELED CELLS 0; TARGET CELLS 0; TEAR DROP CELLS 0; TOXIC GRANULATION 0
[2020-07-29] MEDS ORDERED: INSULIN (NOVOLOG) ASPART 100 UNITS/ML 10ML VIAL ONE ×2 (11:56→22:35)
[2020-07-29] MEDS ORDERED: MELATONIN 5 MG TABLETS PO ONE (22:37)
[2020-07-30] MEDS: CEFAZOLIN 2 GM/D5W 2 GM/50 ML ML IVPB SCH ×3 (02:11→17:50)
[2020-07-30] MEDS: HEPARIN NA (PORCINE) 5,000 UNITS/ML 1ML VIAL SQ SCH ×3 (06:16→21:25)
[2020-07-30] MEDS: INSULIN (LEVEMIR) 100 UNITS/ML UNITS SQ SCH ×2 (06:16→21:26)
[2020-07-30] MEDS: INSULIN SLIDING SCALE (NOVOLOG) 1 VIAL SQ SCH ×4 (06:16→21:26)
[2020-07-30 08:26] LABS: BASO % 0.2 % (0-2.0); EOS % 0.5 % (0-4.5); HEMATOCRIT 32.6 % (32.4-45.2); HEMOGLOBIN 11.1 GM/dL (10.7-15.3); LYMPH % 10.7 % (8-40); MEAN CELL VOLUME 91.1 fl (80-96); MEAN PLT VOLUME 7.9 fl (7.5-11.1); MONO % 4.7 % (3.8-10.2); NEUT % 83.9 % (42.8-82.8); PLATELET COUNT 213 K/MM3 (134-434); RBC 3.58 M/mm3 (3.60-5.2); RDW 15.6 % (11.6-15.6); WHITE BLOOD COUNT 7.9 K/mm3 (4.0-10.0)
[2020-07-30 09:22] LABS: BLOOD UREA NITROGEN 30.6 mg/dL (7-18); CALCIUM 8.3 mg/dL (8.5-10.1)
[2020-07-30 09:27] LABS: BILIRUBIN,TOTAL 0.4 mg/dL (0.2-1); CREATININE 1.1 mg/dL (0.55-1.3); TOT PROT 5.6 g/dl (6.4-8.2)
[2020-07-30] MEDS ORDERED: PT OWN MED DRAWER 7, Y5N ONE (10:31)
[2020-07-30 10:42] LABS: ANISOCYTOSIS 1+; OVALOCYTE 1+; PLATELET ESTIMATE NORMAL; TOXIC GRANULATION 2+
[2020-07-30] MEDS: SODIUM BICARBONATE 650 MG TABLET PO SCH (10:53)
[2020-07-30] MEDS: PANTOPRAZOLE 40 MG TABLET PO SCH (10:53)
[2020-07-30] MEDS: FUROSEMIDE 20 MG TABLET (FP) PO SCH (10:53)
[2020-07-30] MEDS ORDERED: ATENOLOL 50 MG TABLET (FP) PO SCH (18:15)
[2020-07-30] MEDS: ASPIRIN 81 MG CHEWABLE TABLETS PO SCH (19:21)
[2020-07-30] MEDS ORDERED: ATENOLOL 25 MG TABLET (FP) PO SCH (20:53)
[2020-07-30] MEDS: LOSARTAN POTASSIUM 50 MG TABLET PO SCH (21:24)
[2020-07-30] MEDS: hydrALAZINE HCL 25 MG TABLET (FP) PO SCH (21:25)
[2020-07-30] MEDS: DULoxetine HCL 30 MG CAPSULE.DR PO SCH (21:25)
[2020-07-30] MEDS ORDERED: ASPIRIN 81 MG CHEWABLE TABLETS PO SCH (22:00)
[2020-07-30] MEDS ORDERED: ATORVASTATIN CA 20 MG TABLET (FP) PO SCH (22:00)
[2020-07-30] MEDS ORDERED: MELATONIN 5 MG TABLETS PO PRN (22:00)
[2020-07-31] MEDS: CEFAZOLIN 2 GM/D5W 2 GM/50 ML ML IVPB SCH ×2 (01:22→10:21)
[2020-07-31] MEDS: INSULIN (LEVEMIR) 100 UNITS/ML UNITS SQ SCH (06:23)
[2020-07-31] MEDS: HEPARIN NA (PORCINE) 5,000 UNITS/ML 1ML VIAL SQ SCH ×2 (06:23→16:21)
[2020-07-31] MEDS: INSULIN SLIDING SCALE (NOVOLOG) 1 VIAL SQ SCH ×2 (06:23→12:33)
[2020-07-31] MEDS ORDERED: PT OWN MED DRAWER 7, Y5N ONE (09:54)
[2020-07-31] MEDS: LOSARTAN POTASSIUM 50 MG TABLET PO SCH (10:22)
[2020-07-31] MEDS: hydrALAZINE HCL 25 MG TABLET (FP) PO SCH (10:22)
[2020-07-31] MEDS: ASPIRIN 81 MG CHEWABLE TABLETS PO SCH (10:22)
[2020-07-31] MEDS: FUROSEMIDE 20 MG TABLET (FP) PO SCH (10:22)
[2020-07-31] MEDS: PANTOPRAZOLE 40 MG TABLET PO SCH (10:22)
[2020-07-31] MEDS: DULoxetine HCL 30 MG CAPSULE.DR PO SCH (10:23)
[2020-07-31 18:39] VITALS: BP 136/50; PULSE 63; TEMP 97.9
== END 2020-07-31 14:32 | disposition home or self-care (01) | DRG 871 ==
LOC: JER 19:47 → JERBED 22:59 → JICU 07-26 09:57 → J5S 07-27 22:40
PROVIDERS: ATTEND Internal Medicine
DX: A41.51 Sepsis due to Escherichia coli [E. coli] (principal); R65.21 Severe sepsis with septic shock; N10 Acute pyelonephritis; E87.1 Hypo-osmolality and hyponatremia; N17.9 Acute kidney failure, unspecified; E87.2 Acidosis; K56.7 Ileus, unspecified; N18.9 Chronic kidney disease, unspecified; I95.9 Hypotension, unspecified; E78.5 Hyperlipidemia, unspecified; I10 Essential (primary) hypertension; D69.6 Thrombocytopenia, unspecified; E11.40 Type 2 diabetes mellitus with diabetic neuropathy, unspecified; D72.829 Elevated white blood cell count, unspecified; E66.9 Obesity, unspecified; Z68.31 Body mass index [BMI] 31.0-31.9, adult; E83.51 Hypocalcemia; K57.90 Diverticulosis of intestine, part unspecified, without perforation or abscess without bleeding
CPT/HCPCS: 36415; 71045-TC-FY; 74176-TC; 76705-TC; 76775-TC; 76856-TC; 80053; 80061; 81003; 82550; 82962; 83036; 83605; 83721; 83735; 83880; 84100; 84443; 84484; 85025; 85027; 85379; 85610; 85730; 87040; 87086; 87186; 93005; 93010; 93970-TC; 94010; 99285-25; C9803; J0131; J1644; U0003; U0005

== ENCOUNTER 2023-02-25 16:35 | Inpatient (IN) | payer OTHER, BC ==
[2023-02-25 18:32] LABS: BASO % 0.2 % (0-2.0); EOS % 1.4 % (0-4.5); HEMATOCRIT 35.7 % (32.4-45.2); HEMOGLOBIN 11.9 GM/dL (10.7-15.3); LYMPH % 3.9 % (8-40); MCH 27.8 pg (25.7-33.7); MCHC 33.3 g/dl (32.0-36.0); MEAN CELL VOLUME 83.6 fl (80-96); MEAN PLT VOLUME 7.4 fl (7.5-11.1); MONO % 5.3 % (3.8-10.2); NEUT % 89.2 % (42.8-82.8); PLATELET COUNT 226 10^3/uL (134-434); RBC 4.27 M/mm3 (3.60-5.2); RDW 16.3 % (11.6-15.6); WHITE BLOOD COUNT 9.9 K/mm3 (4.0-10.0)
[2023-02-25 18:46] LABS: CHLORIDE 100 mmol/L (98-107); SODIUM 137 mmol/L (136-145)
[2023-02-25 18:48] LABS: CALCIUM 9.2 mg/dL (8.5-10.1); GLUCOSE,RANDOM 138 mg/dL (74-106)
[2023-02-25 18:49] LABS: ALBUMIN 2.9 g/dl (3.4-5.0); CO2 27 mmol/L (21-32)
[2023-02-25 18:51] LABS: SGPT/ALT 177 U/L (13-61)
[2023-02-25 18:52] LABS: CREATININE 1.2 mg/dL (0.55-1.3); SGOT/AST 78 U/L (15-37)
[2023-02-25 18:53] LABS: TOT PROT 6.6 g/dl (6.4-8.2)
[2023-02-25] MEDS ORDERED: SODIUM CHLORIDE 0.9% 1000 ML INFUS.BAG IV ONE (18:53)
[2023-02-25 18:54] LABS: ALK PHOS 784 U/L (45-117)
[2023-02-25] MEDS ORDERED: CEFTRIAXONE 1,000 MG in DEXTROSE 5%-WATER - 50 ML IVPB ONE (18:54)
[2023-02-25 19:01] LABS: ANION GAP 10 mmol/L (4-13); POTASSIUM 2.9 mmol/L (3.5-5.1)
[2023-02-25] MEDS ORDERED: CEFTRIAXONE 1 GM/50 ML BAG ONE (19:21)
[2023-02-25 19:49] LABS: EPI CELLS 15 /uL (0-25.1); HYALINE CASTS 1 /uL (0-3.1); PH,URINE 5.5 (5.0-8.0); URINE APPEARANCE TURBID; URINE BACTERIA 776 /uL (0-1359); URINE BILIRUBIN 2+ (NEGATIVE); URINE COLOR DK YELLOW; URINE GLUCOSE (UA) 3+ (NEGATIVE); URINE KETONE 1+ (NEGATIVE); URINE LEUK ESTERASE NEGATIVE (NEGATIVE); URINE NITRITE NEGATIVE (NEGATIVE); URINE PROTEIN 2+ (NEGATIVE)
[2023-02-25 20:12] LABS: MAGNESIUM 2.2 mg/dL (1.8-2.4)
[2023-02-25 20:23] LABS: POTASSIUM 2.8 mmol/L (3.5-5.1)
[2023-02-25 20:40] LABS: URINE RBC 229.5 /uL (0-23.9)
[2023-02-25 20:41] LABS: URINE WBC 205.8 /uL (0-25.8); YEAST FEW (NEGATIVE)
[2023-02-25] MEDS ORDERED: POTASSIUM CHLORIDE TABS 20 MEQ TABLET.ER (FP) PO ONE ×2 (21:04→21:24)
[2023-02-26 01:00] LABS: INR 1.08 (0.83-1.09); PROTHROMBIN TIME (PATIENT) 12.5 SEC (9.7-13.0)
[2023-02-26 01:47] LABS: BILIRUBIN,DIRECT 3.9 mg/dL (0.0-0.2)
[2023-02-26] MEDS ORDERED: KCL 10 MEQ IVPB 20 MEQ/200 ML INFUS.BAG IVPB ONE (02:56)
[2023-02-26] MEDS ORDERED: SODIUM CHLORIDE 1,000 ML IV SCH (03:00)
[2023-02-26] MEDS ORDERED: POTASSIUM CHLORIDE ORAL LIQUID 20 MEQ/15 ML PO ONE (03:42)
[2023-02-26] MEDS ORDERED: POTASSIUM CHLORIDE ORAL LIQUID 20 MEQ/15 ML ONE (05:01)
[2023-02-26] MEDS: INSULIN SLIDING SCALE (NOVOLOG) 1 VIAL SQ SCH ×4 (07:19→22:03)
[2023-02-26 07:26] LABS: HEMATOCRIT 30.1 % (32.4-45.2); HEMOGLOBIN 10.2 GM/dL (10.7-15.3); MCH 28.1 pg (25.7-33.7); MCHC 33.9 g/dl (32.0-36.0); PLATELET COUNT 186 10^3/uL (134-434); RBC 3.63 M/mm3 (3.60-5.2); RDW 15.8 % (11.6-15.6); WHITE BLOOD COUNT 6.9 K/mm3 (4.0-10.0)
[2023-02-26 07:31] LABS: CHLORIDE 104 mmol/L (98-107); POTASSIUM 3.2 mmol/L (3.5-5.1); SODIUM 140 mmol/L (136-145)
[2023-02-26 07:35] LABS: ANION GAP 9 mmol/L (4-13); CALCIUM 8.8 mg/dL (8.5-10.1); CO2 27 mmol/L (21-32); GLUCOSE,RANDOM 130 mg/dL (74-106)
[2023-02-26 07:36] LABS: ALBUMIN 2.5 g/dl (3.4-5.0); BLOOD UREA NITROGEN 23.1 mg/dL (7-18)
[2023-02-26 07:38] LABS: BILIRUBIN,DIRECT 3.3 mg/dL (0.0-0.2); SGOT/AST 79 U/L (15-37); SGPT/ALT 140 U/L (13-61)
[2023-02-26 07:39] LABS: CREATININE 1.2 mg/dL (0.55-1.3)
[2023-02-26 07:40] LABS: TOT PROT 5.8 g/dl (6.4-8.2)
[2023-02-26 07:41] LABS: ALK PHOS 784 U/L (45-117)
[2023-02-26] MEDS ORDERED: CHLORTHALIDONE 25 MG TABLET PO SCH (10:00)
[2023-02-26 11:19] VITALS: BMI 22.3
[2023-02-26] MEDS: DULoxetine HCL 30 MG CAPSULE.DR PO SCH ×2 (12:20→22:03)
[2023-02-26] MEDS: RAMIPRIL 2.5 MG CAPSULE PO SCH (12:20)
[2023-02-26] MEDS: ENOXAPARIN NA (PORCINE) 40 MG/0.4 ML DISP.SYRIN SQ SCH (12:21)
[2023-02-26] MEDS: ASPIRIN 81 MG CHEWABLE TABLETS PO SCH (12:21)
[2023-02-26] MEDS: POTASSIUM CHLORIDE TABS 20 MEQ TABLET.ER (FP) PO SCH (12:21)
[2023-02-26] MEDS: CEFEPIME 1 GM in DEXTROSE 5%-WATER 100 ML IVPB SCH (14:41)
[2023-02-26] MEDS ORDERED: CEFEPIME 1 GM in DEXTROSE 5%-WATER 100 ML IVPB SCH (18:00)
[2023-02-26] MEDS ORDERED: ROSUVASTATIN CA 10 MG TABLET PO SCH (22:00)
[2023-02-27] MEDS: CEFEPIME 1 GM in DEXTROSE 5%-WATER 100 ML IVPB SCH ×3 (02:22→17:29)
[2023-02-27] MEDS: INSULIN SLIDING SCALE (NOVOLOG) 1 VIAL SQ SCH ×4 (07:18→21:18)
[2023-02-27 07:55] VITALS: RESP 18
[2023-02-27] MEDS: ASPIRIN 81 MG CHEWABLE TABLETS PO SCH (09:13)
[2023-02-27] MEDS: DULoxetine HCL 30 MG CAPSULE.DR PO SCH ×2 (09:13→21:18)
[2023-02-27] MEDS: RAMIPRIL 2.5 MG CAPSULE PO SCH (09:13)
[2023-02-27] MEDS: POTASSIUM CHLORIDE TABS 20 MEQ TABLET.ER (FP) PO SCH (09:13)
[2023-02-27 09:45] LABS: INR 1.11 (0.83-1.09); PROTHROMBIN TIME (PATIENT) 12.9 SEC (9.7-13.0)
[2023-02-27 10:02] LABS: POTASSIUM 3.3 mmol/L (3.5-5.1)
[2023-02-27 10:03] LABS: BASO % 0.9 % (0-2.0); EOS % 4.4 % (0-4.5); HEMATOCRIT 32.8 % (32.4-45.2); HEMOGLOBIN 10.8 GM/dL (10.7-15.3); LYMPH % 14.3 % (8-40); MCH 27.3 pg (25.7-33.7); MCHC 33.1 g/dl (32.0-36.0); MEAN CELL VOLUME 82.7 fl (80-96); MEAN PLT VOLUME 7.7 fl (7.5-11.1); MONO % 9.3 % (3.8-10.2); NEUT % 71.1 % (42.8-82.8); PLATELET COUNT 204 10^3/uL (134-434); RBC 3.96 M/mm3 (3.60-5.2); RDW 15.9 % (11.6-15.6); WHITE BLOOD COUNT 6.9 K/mm3 (4.0-10.0)
[2023-02-27 10:11] LABS: CALCIUM 9.4 mg/dL (8.5-10.1)
[2023-02-27 10:12] LABS: ALBUMIN 2.4 g/dl (3.4-5.0); BLOOD UREA NITROGEN 14.4 mg/dL (7-18)
[2023-02-27 10:15] LABS: CREATININE 0.9 mg/dL (0.55-1.3)
[2023-02-27 10:17] LABS: TOT PROT 5.8 g/dl (6.4-8.2)
[2023-02-27] MEDS ORDERED: INSULIN (NOVOLOG) ASPART 100 UNITS/ML 10ML VIAL ONE ×2 (18:06→21:07)
[2023-02-27] MEDS ORDERED: ACETAMINOPHEN 1000 MG/100 ML BAG IVPB PRN (21:23)
[2023-02-28] MEDS: CEFEPIME 1 GM in DEXTROSE 5%-WATER 100 ML IVPB SCH ×3 (01:09→17:24)
[2023-02-28] MEDS: INSULIN SLIDING SCALE (NOVOLOG) 1 VIAL SQ SCH ×3 (07:17→16:29)
[2023-02-28] MEDS: ASPIRIN 81 MG CHEWABLE TABLETS PO SCH (11:01)
[2023-02-28] MEDS: ENOXAPARIN NA (PORCINE) 40 MG/0.4 ML DISP.SYRIN SQ SCH (11:01)
[2023-02-28] MEDS: DULoxetine HCL 30 MG CAPSULE.DR PO SCH (11:01)
[2023-02-28] MEDS: POTASSIUM CHLORIDE TABS 20 MEQ TABLET.ER (FP) PO SCH (11:02)
[2023-02-28] MEDS: RAMIPRIL 2.5 MG CAPSULE PO SCH (11:02)
[2023-02-28 14:39] VITALS: BP 112/57; PULSE 85; TEMP 98.6
== END 2023-02-28 18:48 | disposition home or self-care (01) | DRG 690 ==
LOC: JER 16:35 → JERBED 22:55 → J8W 02-26 09:58
PROVIDERS: ADMIT Internal Medicine; ATTEND Student in an Organized Health Care Education/Training Program
DX: N39.0 Urinary tract infection, site not specified (principal); I13.0 Hypertensive heart and chronic kidney disease with heart failure and stage 1 through stage 4 chronic kidney disease, or unspecified chronic kidney disease; K71.9 Toxic liver disease, unspecified; K52.9 Noninfective gastroenteritis and colitis, unspecified; J44.9 Chronic obstructive pulmonary disease, unspecified; I10 Essential (primary) hypertension; E11.9 Type 2 diabetes mellitus without complications; E78.5 Hyperlipidemia, unspecified; E87.6 Hypokalemia; I50.9 Heart failure, unspecified; J45.909 Unspecified asthma, uncomplicated; E11.22 Type 2 diabetes mellitus with diabetic chronic kidney disease; N18.9 Chronic kidney disease, unspecified
CPT/HCPCS: 0241U-QW; 36415; 74176-TC; 74183-TC; 76705-TC; 80048; 80053; 80076; 80307; 81003; 82248; 82550; 82728; 82962; 82977; 83516; 83520; 83540; 83550; 83605; 83735; 84132; 85025; 85027; 85610; 86038; 86256; 86376; 86704; 86705; 86707; 86708; 86803; 87040; 87086; 87340; 87350; 87517; 87522; 97116-GP; 97161-GP; 99285-25